=== PATIENT | female | born 1950 | race Caucasian/White ===

== ENCOUNTER → 2016-09-11 | Outpatient (CLI) | payer OTHER, BC ==
[~2016-09-11] MED LIST: NAPR-1169 PO; SERT50TA PO
--- NOTE | 2016-09-12 14:06 | MAMMOGRAPHY REPORT ---
BILATERAL DIGITAL SCREENING MAMMOGRAM WITH CAD: 09/11/2016 CLINICAL HISTORY: Routine screening. Patient has no complaints. TECHNIQUE: Current study was also evaluated with a Computer Aided Detection (CAD) system. Bilatera l CC and MLO views were obtained. COMPARISON: Comparison is made to exams dated: 08/23/2015 mammogram and 06/21/2014 mammogram - [facility]. Also prior outside exams dated 06/21/2014, 04/09/2013, 09/04/2011. BREAST COMPOSITION: The tissue of both breasts is heterogeneously dense, which may obscure small ma sses. FINDINGS: No suspicious masses, calcifications, or areas of architectural distortion are noted in e ither breast. There has been no significant interval change compared to prior exams. Again noted ar e bilateral partially circumscribed and partially obscured masses, which are not significantly charlton ed dating back to the 2012 exam, and are considered benign given long-term stability. Bilateral corona ign-appearing calcifications are also stable. Linear scar markers denote scars on bilateral breasts . IMPRESSION: ACR BI-RADS CATEGORY 2: BENIGN There is no mammographic evidence of malignancy. A 1 year screening mammogram is recommended. The p atient will receive written notification of the results. Approximately 10% of breast cancers are not detected with mammography. A negative mammographic repor t should not delay biopsy if a clinically suggestive mass is present. Diandra Romero M.D. ah/:09/11/2016 15:43:55 [employer] Recovery Operator: Fatuma OSBORNE(R)(M), [facility] letter sent: Normal 1/2 BI-RADS Code: ACR BI-RADS Category 2: Benign
== END | disposition home or self-care (01) ==
LOC: C.MAMM 13:24
PROVIDERS: ATTEND Family Medicine
DX: Z12.31 Encounter for screening mammogram for malignant neoplasm of breast (principal)

== ENCOUNTER 2017-11-28 19:41 | Emergency (ER) | payer OTHER, BC ==
[~2017-11-28] VITALS: Ht 162.6 cm; Wt 78.0 kg
[~2017-11-28 19:41] MED LIST changes: +ACET-24 PO; +ASPI-320 PO; +CALC600T9 PO; +CLON1TAB10 PO; +CLOTCRE33 TOP; +EPP3/2 IM; +GINKGO PO; +KETOCONAZOLE 2% TOP; +LEVO1TAB39 PO; +MELATAB2 PO; +MULT-506 PO; -NAPR-1169 PO; +NAPR-22 PO; +RXC5 PO; +VALA500T60 PO
[2017-11-28 19:44] VITALS: TEMP 36.7; Ht 162.6 cm; Wt 78.0 kg
--- NOTE | 2017-11-28 20:34 | EMERGENCY ROOM VISIT NOTE ---
ED Visit Note First contact with patient: 19:53 CHIEF COMPLAINT: Finger injury HISTORY OF PRESENT ILLNESS: This 67-year-old female patient presents to the emergency department by private vehicle after injuring the left ring finger around 9 AM this morning. Patient states that she tripped and fell forward, jammed her left ring finger. She states she is here because of the swelling in the finger and could not remove her wedding, she is requesting the ring to be cut off. The patient rates the pain as throbbing and 2/10. The patient has normal range of motion of the finger. No numbness or tingling. No lacerations. No other injuries. The patient has not had previous fracture to this finger. The patient has taken no medications for the pain. Patient is right-hand dominant. REVIEW OF SYSTEMS: A 6 system review of systems was completed with positives and pertinent negatives in the HPI. ALLERGIES: Reviewed in chart, see below MEDICATIONS: Reviewed in chart, see below PMH: Anxiety, depression, arthritis SOCIAL HISTORY: Lives at home. Denies tobacco use. PHYSICAL EXAM: Vital Signs: Reviewed Nurse's notes, vital signs stable. GENERAL : Pleasant and cooperative, in no acute distress, well-developed, well- nourished. MUSCULOSKELETAL: There is no deformity of the left fourth finger. The patient has full flexion and full extension of the left fourth finger and strength to resistance is normal. The PIP joint is maximally tender. There is moderate swelling and ecchymosis of the finger, mildly tender to palpation. There is no ligamentous instability. There is no laceration. Capillary refill less than 2 seconds. No tenderness of the remaining fingers or hand. Full range of motion of the wrist. NEURO: Alert and oriented to person, place, and time. Normal sensation to light and sharp touch. IMAGING: L FINGER(S) MIN 2 VIEWS ROUTINE CLINICAL HISTORY: tripped and jammed ring finger, eval fx COMPARISON: None FINDINGS: Note is made of a probable nondisplaced fracture within the palmar base of the middle phalanx of the left fourth finger. There is soft tissue swelling at the level the PIP joint of the left fourth finger. Moderate osteophytosis is noted within multiple articulations. IMPRESSION: Probable nondisplaced fracture within the palmar base of the middle phalanx of the left fourth finger. EMERGENCY DEPARTMENT COURSE: I examined the patient. Differential diagnosis includes sprain/strain, contusion, fracture, dislocation, among others. An x- ray of the left ring finger was reviewed by myself and read by the radiologist and showed acute fracture of the base of the middle phalanx. The finger was immobilized by metal splint under my direction and the position was satisfactory. Neurovascular status rechecked and intact. Patient was educated regarding splint care, orthopedic follow-up, and return precautions, she verbalized understanding. The patient was discharged home in good condition and ambulatory. Medication Reconciliation: I attest that I have personally reviewed the patient' s current medication list. Blood pressure screening: The patient was found to have an elevated blood pressure, which was felt to be situational. Patient was discussed with Dr. Christensen, who also evaluated the patient and agrees with my assessment and plan. Current/Historical Medications Scheduled Acetaminophen (Sb Non-Aspirin Extra Stre), 1,000 MG PO Q8H Aspirin (Aspirin EC Low Dose), 81 MG PO BID Calcium Carbonate-Vitamin D (Calcium + D), 1 TAB PO BID Clonazepam (Klonopin), 1 MG PO QAM Clotrimazole W/ Betamethasone (Lotrisone), 1 APPLN TOP PRN Epinephrine (Epipen), 0.3 MG IM UD Levocarnitine Fumarate (L-Carnitine Fumarate), 500 MG PO QAM Multivitamin (Multivitamin), 1 TAB PO QAM Sertraline (Zoloft), 2 TAB PO DAILY [[place]ing[place] Biloboa], 120 MG PO QAM [Ketoconazole 2%], 1 DOSE TOP WEEKLY Scheduled PRN Melatonin (Melatonin Maximum Strengt), 1 TAB PO HS PRN for PRN Naproxen (Naprosyn), 500 MG PO BID PRN for Pain Oxycodone HCl (Oxycodone HCl), 5 MG PO Q4H PRN for Pain Valacyclovir (Valtrex), 1,000 MG PO UD PRN for PRN Allergies Coded Allergies: [place] (Verified Allergy, Severe, ANAPHYLAXIS, 09/19/17) Alexia Nut (Verified Allergy, Severe, ANAPHYLAXIS, 09/19/17) Adhesives (Verified Allergy, Unknown, RED SWELLING SKIN WITH BANDAIDS, 09/19) NO KNOWN DRUG ALLERGIES (Verified Allergy, Unknown, NONE, 09/19/17) Vital Signs Date Time Temp Pulse Resp B/P (MAP) Pulse Ox O2 Delivery O2 Flow Rate FiO2 11/28/17 21:45 75 18 140/79 93 11/28/17 19:44 36.7 77 16 154/78 94 Room Air Departure Information Impression Primary Impression: Closed fracture of phalanx of left ring finger Dispostion Home / Self-Care Condition GOOD Referrals Vega Chinchilla M.D. (PCP) Elmer Paige M.D. Patient Instructions ED Fx Finger Closed, My [facility] Additional Instructions You have been evaluated and treated in the emergency department today for your left finger injury. X-ray today shows a fracture of your middle phalanx. Wear the metal finger splint to protect the fracture. You should follow-up with the orthopedic hand surgeon in the next week for further evaluation. Keep the hand elevated as much as possible, apply ice intermittently infrequently to help reduce pain and swelling. Tylenol 650 mg and ibuprofen 600 mg every 6 hours as needed for pain. For best results, alternate between Tylenol and ibuprofen every 3-4 hours. Please return to the emergency department for severe worsening swelling or pain , loss of feeling or discoloration of the finger, or for any other concerns. Problem Qualifiers Primary Impression: Closed fracture of phalanx of left ring finger Encounter type: initial encounter Phalanx: middle Fracture alignment: nondisplaced Qualified Codes: S62.655A - Nondisplaced fracture of medial phalanx of left ring finger, initial encounter for closed fracture
--- NOTE | 2017-11-28 20:47 | DIAGNOSTIC IMAGING REPORT ---
L FINGER(S) MIN 2 VIEWS ROUTINE CLINICAL HISTORY: tripped and jammed ring finger, eval fx COMPARISON: None FINDINGS: Note is made of a probable nondisplaced fracture within the palmar base of the middle phalanx of the left fourth finger. There is soft tissue swelling at the level the PIP joint of the left fourth finger. Moderate osteophytosis is noted within multiple articulations. IMPRESSION: Probable nondisplaced fracture within the palmar base of the middle phalanx of the left fourth finger. Electronically signed by: Michael Collins M.D. 11/28/2017 8:45 PM Dictated Date/Time: 11/28/2017 8:44 PM
--- NOTE | 2017-11-28 21:01 | EMERGENCY ROOM VISIT NOTE ---
ED Visit Note First contact with patient: 19:54 I have seen and examined this patient with Thao Calderón and generally agree with the treatment plan as discussed. Current/Historical Medications Scheduled Acetaminophen (Sb Non-Aspirin Extra Stre), 1,000 MG PO Q8H Aspirin (Aspirin EC Low Dose), 81 MG PO BID Calcium Carbonate-Vitamin D (Calcium + D), 1 TAB PO BID Clonazepam (Klonopin), 1 MG PO QAM Clotrimazole W/ Betamethasone (Lotrisone), 1 APPLN TOP PRN Epinephrine (Epipen), 0.3 MG IM UD Levocarnitine Fumarate (L-Carnitine Fumarate), 500 MG PO QAM Multivitamin (Multivitamin), 1 TAB PO QAM Sertraline (Zoloft), 2 TAB PO DAILY [[place]ing[place] Biloboa], 120 MG PO QAM [Ketoconazole 2%], 1 DOSE TOP WEEKLY Scheduled PRN Melatonin (Melatonin Maximum Strengt), 1 TAB PO HS PRN for PRN Naproxen (Naprosyn), 500 MG PO BID PRN for Pain Oxycodone HCl (Oxycodone HCl), 5 MG PO Q4H PRN for Pain Valacyclovir (Valtrex), 1,000 MG PO UD PRN for PRN Allergies Coded Allergies: [place] (Verified Allergy, Severe, ANAPHYLAXIS, 09/19/17) Alexia Nut (Verified Allergy, Severe, ANAPHYLAXIS, 09/19/17) Adhesives (Verified Allergy, Unknown, RED SWELLING SKIN WITH BANDAIDS, 09/19) NO KNOWN DRUG ALLERGIES (Verified Allergy, Unknown, NONE, 09/19/17) Vital Signs Date Time Temp Pulse Resp B/P (MAP) Pulse Ox O2 Delivery O2 Flow Rate FiO2 11/28/17 19:44 36.7 77 16 154/78 94 Room Air Departure Information Impression Primary Impression: Closed fracture of phalanx of left ring finger Dispostion Home / Self-Care Condition GOOD Referrals Vega Chinchilla M.D. (PCP) Austin Louise MD Patient Instructions My [facility], ED Fx Finger Closed Additional Instructions You have been evaluated and treated in the emergency department today for your left finger injury. X-ray today shows a fracture of your middle phalanx. Wear the metal finger splint to protect the fracture. You should follow-up with the orthopedic hand surgeon in the next week for further evaluation. Keep the hand elevated as much as possible, apply ice intermittently infrequently to help reduce pain and swelling. Tylenol 650 mg and ibuprofen 600 mg every 6 hours as needed for pain. For best results, alternate between Tylenol and ibuprofen every 3-4 hours. Please return to the emergency department for severe worsening swelling or pain , loss of feeling or discoloration of the finger, or for any other concerns.
[2017-11-28 21:45] VITALS: BP 140/79; PULSE 75; O2SAT 93
== END 2017-11-28 21:45 | disposition home or self-care (01) ==
LOC: C.EDB 19:43 → C.EDD 21:45
DX: S62.655A Nondisplaced fracture of middle phalanx of left ring finger, initial encounter for closed fracture (principal); W18.09XA Striking against other object with subsequent fall, initial encounter